=== PATIENT | male | born 1985 | race Caucasian/White ===

== ENCOUNTER 2017-10-24 14:22 | Emergency (ER) | payer SELFPAY ==
[2017-10-24] MEDS ORDERED: Bacitracin Oint 1 GM U/D Packet TOP ONE (14:49)
[2017-10-24] MEDS ORDERED: Diphtheria,Pertussis(Acell),Tetanus Vaccine 0.5 ML Syringe IM ONE (14:49)
[2017-10-24] MEDS ORDERED: Ibuprofen 800 MG Tab PO ONE (14:49)
--- NOTE | 2017-10-24 14:54 | EDM.PDOC ---
ED HPI GENERAL MEDICAL PROBLEM - General Chief Complaint: Upper Extremity Injury/Pain Stated Complaint: PAIN RT HAND /WRIST Time Seen by Provider: 10/24/17 14:26 - History of Present Illness INITIAL COMMENTS - FREE TEXT/NARRATIVE: HISTORY AND PHYSICAL: History of present illness: The patient is a healthy 32-year-old male who was at work on a piece of equipment when it started falling forward and attempt to brace himself the foot bilateral hands out in outstretched manner and caused abrasions to the dorsal aspect of his hands and pain in his right lateral hand and wrist area. Patient is the pain originates in his hand and does radiate up his elbow and he has some mild elbow discomfort. He is right-hand dominant and neurosensory is intact. He is not concerned about the abrasions on bilateral hands at the knuckles. He has no proximal shoulder or clavicle pain on the right. Prior to these events he was in his usual state of good health with no systemic complaints he did not hit his head or pass out or black out and has no head or face or neck Review of systems: As per history of present illness and below otherwise all systems reviewed and negative. Past medical history: As per history of present illness and as reviewed below otherwise noncontributory. Surgical history: As per history of present illness and as reviewed below otherwise noncontributory. Social history: No reported history of drug or alcohol abuse. Family history: As per history of present illness and as reviewed below otherwise noncontributory. Physical exam: General: Well-developed well-nourished man who is nontoxic and vital signs were noted by me HEENT: Atraumatic, normocephalic,negative for conjunctival pallor or scleral icterus, mucous membranes moist, throat clear, neck supple, nontender, trachea midline. Lungs: Clear to auscultation, breath sounds equal bilaterally, chest nontender. Heart: S1S2, regular rate and rhythm no overt murmurs Abdomen: Soft, nondistended, nontender. NABS Pelvis: Deferred Genitourinary: Deferred. Rectal: Deferred. Extremities: Atraumatic with full range of motion of all extremities with the exception of the left hand, right hand and elbow there are superficial abrasions noted to the MCP areas on the right and left hands without any surrounding erythema or soft tissue swelling. At the right hand there is tenderness along the fifth metacarpal in the ulnar styloid area without defects deformities or ecchymosis. There is some mild soft tissue swelling in this region. There is no radial aspect tenderness or snuffbox tenderness but there is some mild tenderness when I palpate the radial head. There is no tenderness at the olecranon or the remainder of the forearm. The legs are., negative for cords or calf pain. Neurovascular unremarkable. Neuro: Awake, alert, oriented. Cranial nerves II through XII unremarkable. Cerebellum unremarkable. Motor and sensory unremarkable throughout. Exam nonfocal. Diagnostics: X-ray right hand/wrist and elbow Therapeutics: Ibuprofen ice pack and care with cleansing and bacitracin of abrasions Tdap Velcro cock-up splint Impression: Contusion of right hand with superficial abrasions of bilateral hands, right wrist contusion Definitive disposition and diagnosis as appropriate pending reevaluation and review of above. Right Wrist Pain Score (Numeric/FACES): 7 - Related Data Allergies Allergy/AdvReac Type Severity Reaction Status Date / Time No Known Allergies Allergy Verified 10/24/17 14:39 Home Meds: Home Meds Acetaminophen [Tylenol Extra Strength] 1,000 mg PO ASDIRECTED PRN 09/09/14 [ History] Past Medical History - Past Health History Medical/Surgical History: Denies Medical/Surgical History - Infectious Disease History Infectious Disease History: Reports: Chicken Pox Social & Family History - Tobacco Use Smoking Status *Q: Never Smoker - Recreational Drug Use Recreational Drug Use: No Review of Systems - Review of Systems Review Of Systems: ROS reveals no pertinent complaints other than HPI. ED EXAM, GENERAL - Physical Exam Exam: See Below (See dictation) Course - Vital Signs Last Recorded V/S: Last Vital Signs Temp 36.6 C 10/24/17 14:37 Pulse 69 10/24/17 14:37 Resp 16 10/24/17 14:37 BP 122/83 10/24/17 14:37 Pulse Ox 99 10/24/17 14:37 - Orders/Labs/Meds Orders: Active Orders 24 hr Category Date Time Status Communication Order [RC] STAT Care 10/24/17 14:49 Active Vaccines to be Administered [RC] PER UNIT ROUTINE Care 10/24/17 14:50 Active Elbow Min 3V Rt [CR] Stat Exams 10/24/17 14:48 Taken Hand Comp Min 3V Rt [CR] Stat Exams 10/24/17 14:48 Taken DME for Discharge [COMM] Stat Oth 10/24/17 16:11 Ordered Meds: Medications Discontinued Medications Generic Name Dose Route Start Last Admin Trade Name Melyl PRN Reason Stop Dose Admin Bacitracin 1 dose 10/24/17 14:49 10/24/17 14:58 Bacitracin Oint 1 Gm TOP 10/24/17 14:50 1 dose ONETIME ONE Administration Diphtheria/Tetanus/Acell Pertussis 0.5 ml 10/24/17 14:49 10/24/17 14:58 Adacel IM 10/24/17 14:50 0.5 ml .ONCE ONE Administration Ibuprofen 800 mg 10/24/17 14:49 10/24/17 14:57 Motrin PO 10/24/17 14:50 800 mg ONETIME ONE Administration Departure - Departure Time of Disposition: 16:12 Disposition: Home, Self-Care 01 Condition: Good Clinical Impression: Contusion of wrist, right Qualifiers: Encounter type: initial encounter Qualified Code(s): S60.211A - Contusion of right wrist, initial encounter Contusion of hand, right Qualifiers: Encounter type: initial encounter Qualified Code(s): S60.221A - Contusion of right hand, initial encounter - Discharge Information Referrals: PCP,None [Primary Care Provider] - Forms: ED Department Discharge Additional Instructions: The following information is given to patients seen in the emergency department who are being discharged to home. This information is to outline your options for follow-up care. We provide all patients seen in our emergency department with a follow-up referral. The need for follow-up, as well as the timing and circumstances, are variable depending upon the specifics of your emergency department visit. If you don't have a primary care physician on staff, we will provide you with a referral. We always advise you to contact your personal physician following an emergency department visit to inform them of the circumstance of the visit and for follow-up with them and/or the need for any referrals to a consulting specialist. The emergency department will also refer you to a specialist when appropriate. This referral assures that you have the opportunity for followup care with a specialist. All of these measure are taken in an effort to provide you with optimal care, which includes your followup. Under all circumstances we always encourage you to contact your private physician who remains a resource for coordinating your care. When calling for followup care, please make the office aware that this follow-up is from your recent emergency room visit. If for any reason you are refused follow-up, please contact the [facility] emergency department at and ask to speak to the emergency department charge nurse. [facility] Specialty clinic-Plastic Surgery and Hand Surgery Professional [address] [address] Wear a Velcro splint at all times during the day and ice and elevate the hand as much as possible. Keep your wound clean and dry with mild soap and water and apply bacitracin or Neosporin, do not use peroxide or alcohol. Use over-the- counter ibuprofen/Motrin or Tylenol for pain. Please call and follow-up with our hand specialist or with your family doctor the next few days and return to ER as needed and as discussed - My Orders Last 24 Hours: My Active Orders 10/24/17 14:48 Elbow Min 3V Rt [CR] Stat Hand Comp Min 3V Rt [CR] Stat 10/24/17 14:49 Communication Order [RC] STAT 10/24/17 14:50 Vaccines to be Administered [RC] PER UNIT ROUTINE 10/24/17 16:11 DME for Discharge [COMM] Stat - Assessment/Plan Last 24 Hours: My Active Orders 10/24/17 14:48 Elbow Min 3V Rt [CR] Stat Hand Comp Min 3V Rt [CR] Stat 10/24/17 14:49 Communication Order [RC] STAT 10/24/17 14:50 Vaccines to be Administered [RC] PER UNIT ROUTINE 10/24/17 16:11 DME for Discharge [COMM] Stat
[2017-10-24 16:25] VITALS: BP 122/73
--- NOTE | 2017-10-25 18:54 | CR ---
EXAM DATE: 10/24/17 PATIENT'S AGE: 32 Patient: JERI ACEVEDO Facility: [place], [place] Site . Site : 1985 Study: XRay Extremity Right elbow [id number]/[id number] 3:15:37 PM Ordering Physician: Chayito Calderon Final Report: HISTORY: Pain after falling injury. FINDINGS: Three views of the right elbow are provided. No findings for fracture, dislocation, arthritic change, effusion or loose body. Dictated by Marvel Castillo MD @ Oct 24 2017 3:32PM (Electronic Signature) Report Signed by Proxy. SHERWIN
--- NOTE | 2017-10-25 18:55 | CR ---
EXAM DATE: 10/24/17 PATIENT'S AGE: 32 Patient: JERI ACEVEDO Facility: [place], [place] Site . Site : 1985 Study: XRay Extremity Right hand [id number]/1/[id number] 3:27:54 PM Ordering Physician: Chayito Calderon Final Report: INDICATION: Right hand injury with pain. TECHNIQUE: Three views of the right hand. COMPARISON: None FINDINGS: Bones: Alignment is normal. No fractures or bone lesions. Joint spaces: Unremarkable. Soft tissues: Unremarkable. IMPRESSION: Negative. Dictated by Leonides Blackmon MD @ Oct 24 2017 3:56PM (Electronic Signature) Report Signed by Proxy. [facility]
== END 2017-10-24 16:22 | disposition home or self-care (01) ==
LOC: MW.ED 14:22
DX: S60.211A Contusion of right wrist, initial encounter (principal); X50.9XXA Other and unspecified overexertion or strenuous movements or postures, initial encounter
CPT/HCPCS: 73080; 73130; 90471; 90715; 99283; A9270

== ENCOUNTER 2017-10-24 18:38 | Emergency (ER) | payer SELFPAY ==
[2017-10-24 18:56] VITALS: BP 128/78
== END 2017-10-24 19:04 | disposition home or self-care (01) ==
LOC: MW.ED 18:38
DX: Z53.21 Procedure and treatment not carried out due to patient leaving prior to being seen by health care provider (principal)

== ENCOUNTER 2021-11-24 10:08 | Emergency (ER) | payer SELFPAY ==
[2021-11-24 11:32] VITALS: BP 141/86; PULSE 84
== END 2021-11-24 11:32 | disposition home or self-care (01) ==
LOC: MW.ED 10:08
DX: U07.1 COVID-19 (principal)
CPT/HCPCS: 99283; U0002

== ENCOUNTER 2022-04-15 08:12 | Emergency (ER) | payer BC ==
[2022-04-15] MEDS: Albuterol/Ipratropium 3.0-0.5 MG/3 ML Neb Soln NEB ONE ×2 (09:00→09:08)
[2022-04-15 09:04] LABS: CORONAVIRUS COVID-19 NAA NEGATIVE (NEGATIVE); INFLUENZA A NAA NEGATIVE (NEGATIVE); INFLUENZA B NAA NEGATIVE (NEGATIVE)
[2022-04-15 09:37] VITALS: BP 133/80; PULSE 96
== END 2022-04-15 09:40 | disposition home or self-care (01) ==
LOC: MW.ED 08:12
DX: J18.9 Pneumonia, unspecified organism (principal); J45.909 Unspecified asthma, uncomplicated; Z79.899 Other long term (current) drug therapy; Z20.822 Contact with and (suspected) exposure to COVID-19
CPT/HCPCS: 0240U; 71045; 94640; 99284; J7620-GY

== ENCOUNTER 2022-05-23 07:03 | Emergency (ER) | payer BC ==
[2022-05-23] MEDS ORDERED: Sodium Chloride 0.9% 10 ML Syringe FLUSH PRN (07:38)
[2022-05-23] MEDS ORDERED: Sodium Chloride 0.9% 2.5 ML Syringe FLUSH PRN (07:38)
[2022-05-23] MEDS ORDERED: Ketorolac 30 MG/ML SDV IVPUSH ONE (07:40)
[2022-05-23 09:06] LABS: POTASSIUM,K 4.6 mmol/L (3.5-5.1)
[2022-05-23] MEDS ORDERED: Dexamethasone 10 MG/ML SDV IVPUSH ONE (09:26)
[2022-05-23] MEDS ORDERED: Gabapentin 300 MG Cap PO ONE (09:28)
[2022-05-23] MEDS ORDERED: Lidocaine 5% 700 MG Patch TRDERM ONE (10:55)
[2022-05-23 11:20] VITALS: BP 144/98; PULSE 81
== END 2022-05-23 11:17 | disposition home or self-care (01) ==
LOC: MW.ED 07:03
DX: M47.816 Spondylosis without myelopathy or radiculopathy, lumbar region (principal)
CPT/HCPCS: 36415; 74176; 80053; 81001; 85025; 96374; 96375; 99284; A9270; J1100; J1885; J3490

== ENCOUNTER 2022-06-13 20:31 | Emergency (ER) | payer SELFPAY ==
[2022-06-13] MEDS ORDERED: Ibuprofen 400 MG Tab PO ONE (21:11)
[2022-06-13] MEDS ORDERED: Acetaminophen 325 MG Tab PO ONE (21:11)
[2022-06-13] MEDS ORDERED: Ondansetron 4 MG Tab.DIS PO ONE (21:12)
[2022-06-13 21:35] LABS: CORONAVIRUS COVID-19 NAA POSITIVE (NEGATIVE); INFLUENZA A NAA NEGATIVE (NEGATIVE); INFLUENZA B NAA NEGATIVE (NEGATIVE)
[2022-06-13 22:39] VITALS: BP 149/86; PULSE 81
== END 2022-06-13 22:12 | disposition home or self-care (01) ==
LOC: MW.ED 20:31
DX: U07.1 COVID-19 (principal); J45.909 Unspecified asthma, uncomplicated
CPT/HCPCS: 0240U; 99283; A9270